=== PATIENT | female | born 2005 | race Caucasian/White ===

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

== ENCOUNTER 2023-05-29 15:00 | Emergency (ER) | payer OTHER ==
[~2023-05-29] VITALS: Ht 160 cm; Wt 61.2 kg
[~2023-05-29 15:00] MED LIST changes: +MACROBID100 M1 PO
[2023-05-29] MEDS ORDERED: NORGESTIMATE-E1 EACH PO (15:54)
[2023-05-29] MEDS ORDERED: CORTISPORIN SUS10 ML OT ×2 (16:34→16:53)
[2023-05-29] MEDS ORDERED: SEPTDS PO ×2 (16:34→16:53)
== END 2023-05-29 16:52 | disposition home or self-care (01) ==
LOC: ED 15:00
DX: H66.92 Otitis media, unspecified, left ear (principal); H60.92 Unspecified otitis externa, left ear; Z88.0 Allergy status to penicillin

== ENCOUNTER 2024-04-12 00:46 | Emergency (ER) | payer OTHER ==
[~2024-04-12] VITALS: Ht 160 cm; Wt 59.0 kg
[~2024-04-12 00:46] MED LIST changes: +CORTISPORIN SUS10 ML OT; +NORGESTIMATE-E1 EACH PO; +SEPTDS PO
[2024-04-12] MEDS ORDERED: KENALOG 0.1%80 GM T (00:57)
[2024-04-12] MEDS ORDERED: Dexamethasone Sodium Phospha 20 MG/5 ML VIAL IM ONE (01:10)
[2024-04-12] MEDS ORDERED: PREDNISONE20 M1 PO (01:12)
== END 2024-04-12 01:25 | disposition home or self-care (01) ==
LOC: ED 00:46
DX: R21 Rash and other nonspecific skin eruption (principal); Z88.0 Allergy status to penicillin

== ENCOUNTER → 2024-06-04 | Outpatient (CLI) | payer OTHER ==
[~2024-06-04] MED LIST changes: +KENALOG 0.1%80 GM T; +PREDNISONE20 M1 PO
== END | disposition home or self-care (01) ==
LOC: RHCWE 16:47
PROVIDERS: ATTEND Nurse Practitioner Family
DX: Z12.4 Encounter for screening for malignant neoplasm of cervix (principal)

== ENCOUNTER 2024-08-28 22:31 | Emergency (ER) | payer OTHER ==
[~2024-08-28] VITALS: Ht 160 cm; Wt 59.0 kg
[2024-08-29] MEDS ORDERED: ACETAMINOPHEN 325 MG TAB PO ONE (00:10)
== END 2024-08-29 00:27 | disposition home or self-care (01) ==
LOC: ED 22:31
DX: S00.93XA Contusion of unspecified part of head, initial encounter (principal); R42 Dizziness and giddiness; H53.8 Other visual disturbances; Z88.0 Allergy status to penicillin; W22.8XXA Striking against or struck by other objects, initial encounter; Y93.89 Activity, other specified; Y92.89 Other specified places as the place of occurrence of the external cause; Y99.0 Civilian activity done for income or pay

== ENCOUNTER → 2025-02-10 | Outpatient (CLI) | payer OTHER | LOC: LAB 16:58 | PROVIDERS: ATTEND Nurse Practitioner Family | DX: N91.2 Amenorrhea, unspecified (principal) ==